=== PATIENT | male | born 2000 | race Caucasian/White ===

== ENCOUNTER 2022-09-14 14:02 | Emergency (ER) | payer OTHER, SELFPAY ==
[2022-09-14] MEDS ORDERED: Ketorolac Tromethamine 10 MG TAB ONE (15:55)
== END 2022-09-14 16:09 | disposition home or self-care (01) ==
LOC: MADERS 14:02
DX: S93.402A Sprain of unspecified ligament of left ankle, initial encounter (principal); X50.1XXA Overexertion from prolonged static or awkward postures, initial encounter